=== PATIENT | male | born 1990 | race Caucasian/White ===

== ENCOUNTER 2022-07-09 15:39 | Emergency (ER) | payer MEDICAID ==
[~2022-07-09] VITALS: Ht 185.4 cm; Wt 79.4 kg
[2022-07-09] MEDS ORDERED: IV NS 0.9% 1,000 ML IV ONE (16:00)
[2022-07-09] MEDS ORDERED: KETOROLAC TROMETHAMINE INJ 30 MG/ML VIAL IV ONE (16:00)
[2022-07-09] MEDS ORDERED: ONDANSETRON HCL/PF 4 MG/2 ML VIAL IV ONE (16:00)
[2022-07-09] MEDS ORDERED: ONDANSETRON HCL/PF 4 MG/2 ML VIAL ONE (16:05)
[2022-07-09] MEDS ORDERED: KETOROLAC TROMETHAMINE INJ 30 MG/ML VIAL ONE (16:05)
--- NOTE | 2022-07-09 16:10 | NUR ---
phleb at bedside for blood draw
[2022-07-09 16:17] LABS: BASOPHILS # (AUTO) 0.1 K/uL (0.0-0.2); BASOPHILS % (AUTO) 1.5 % (0.0-2.0); EOSINOPHILS % (AUTO) 2.7 % (0.0-6.0); HEMATOCRIT 40 % (39-51); HEMOGLOBIN 13.5 g/dL (13.5-17.5); LYMPHOCYTES # (AUTO) 1.9 K/uL (0.8-4.8); LYMPHOCYTES % (AUTO) 31.8 % (20.0-44.0); MEAN CORPUSCULAR HGB CONC 34 g/dl (31.0-36.0); MEAN CORPUSCULAR VOLUME 94 fL (80-96); MONOCYTES # (AUTO) 0.5 K/uL (0.1-1.30); MONOCYTES % (AUTO) 7.7 % (2.0-12.0); NEUTROPHILS # (AUTO) 3.4 K/uL (1.8-8.9); NEUTROPHILS % (AUTO) 56.3 % (43.0-81.0); PLATELET COUNT (AUTO) 110 K/uL (150-450); RED BLOOD CELL COUNT(AUTO) 4.27 MIL/uL (4.5-6.0); WHITE BLOOD COUNT (AUTO) 6.1 K/uL (4.3-11.0)
--- NOTE | 2022-07-09 16:17 | NUR ---
iv line established on left hand #20
[2022-07-09 16:32] LABS: CREATININE 0.9 mg/dL (0.6-1.3); POTASSIUM 3.5 mmol/L (3.5-5.1)
[2022-07-09 16:37] LABS: ALBUMIN 4.3 g/dL (3.4-5.0); BILIRUBIN,DIRECT 0.2 mg/dL (0.0-0.2); BILIRUBIN,TOTAL 0.8 mg/dL (0.2-1.0); TOTAL PROTEIN, SERUM 7.7 g/dL (6.4-8.2)
[2022-07-09] MEDS ORDERED: HALOPERIDOL LACTATE INJ 5 MG/ML VIAL ONE (17:27)
[2022-07-09] MEDS ORDERED: HALOPERIDOL LACTATE INJ 5 MG/ML VIAL IV ONE (17:30)
--- NOTE | 2022-07-09 17:30 | NUR ---
PT TAKEN TO RADIOLOGY FOR CT
--- NOTE | 2022-07-09 17:35 | NUR ---
PT RETURNED FROM RADIOLOGY
[2022-07-09] MEDS ORDERED: PIPERACILLIN /TAZOBACTAM 3.375 G in IV D5W 50 ML IV ONE (18:30)
[2022-07-09] MEDS ORDERED: LORAZEPAM INJ 2 MG/ML VIAL IV ONE (18:30)
--- NOTE | 2022-07-09 18:42 | NUR ---
URINE SAMPLE COLLECTED AND SENT TO LAB
[2022-07-09] MEDS ORDERED: LORAZEPAM INJ 2 MG/ML VIAL ONE (18:48)
[2022-07-09] MEDS ORDERED: MORPHINE SULFATE INJ 2 MG/ML DISP.SYRIN IV ONE (22:00)
[2022-07-09] MEDS ORDERED: MORPHINE SULFATE INJ 2 MG/ML DISP.SYRIN ONE (22:05)
--- NOTE | 2022-07-09 22:11 | NUR ---
PT C/O ABD PAIN 03/09. ADMINISTERED MORPHINE 2MG ORDERED.
[2022-07-10] MEDS ORDERED: MORPHINE SULFATE INJ 4 MG/ML DISP.SYRIN ONE (01:58)
[2022-07-10] MEDS ORDERED: MORPHINE SULFATE INJ 2 MG/ML DISP.SYRIN IV ONE (02:00)
--- NOTE | 2022-07-10 03:37 | NUR ---
[place] [facility] - 07/10/22 at 0440 by GERALDINE CAROL ANN WATERS TEAM AT PT'S BEDSIDE
--- NOTE | 2022-07-10 05:25 | NUR ---
YANETH FROM [facility] CALLED BACK. PT ACCEPTED TO [facility] BY DR. MEJIA. ROOM 437A. NUMBER FOR REPORT [phone] [facility] ETA [phone]
--- NOTE | 2022-07-10 05:38 | NUR ---
[facility] [phone]; AWAITING CALL BACK FOR REPORT
--- NOTE | 2022-07-10 07:02 | NUR ---
NOTIFIED [facility] THAT PT WILL BE TRANSFERING TO [facility]
--- NOTE | 2022-07-10 07:08 | NUR ---
[facility]ED [facility] [phone]; NOT ABLE TO GIVE REPORT AT THIS TIME. UPDATED ROOM TELEMETRY 600T
[2022-07-10 08:30] VITALS: BP 130/68
--- NOTE | 2022-07-10 09:29 | NUR ---
TRANSPORT [facility] AT BEDSIDE.
--- NOTE | 2022-07-10 09:33 | NUR ---
REPORT GIVEN TO JENI DEWITT AT [facility] AND [facility] FOR [place]
== END 2022-07-10 09:51 | disposition short-term general hospital (02) ==
LOC: ER 15:42
DX: K86.9 Disease of pancreas, unspecified (principal); R11.2 Nausea with vomiting, unspecified; K21.9 Gastro-esophageal reflux disease without esophagitis; R10.13 Epigastric pain; F10.129 Alcohol abuse with intoxication, unspecified; Y90.5 Blood alcohol level of 100-119 mg/100 ml; Z20.822 Contact with and (suspected) exposure to COVID-19
CPT/HCPCS: 99285; 96365; 96361; 96375; 74176; 85025; 80048; 83690; 80076; 36415; 87081; 87426; 80320; 80307; 96376; J2060; J1630; J1885; J2405; J2543; J7060; J7030; J2270 ×2; C9803; G0480